=== PATIENT | female | born 2000 | race Caucasian/White ===

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

== ENCOUNTER 2022-02-10 23:09 | Emergency (ER) | payer OTHER ==
[~2022-02-10] VITALS: Ht 167.6 cm; Wt 61.0 kg
[~2022-02-10 23:09] MED LIST: AMOXICILLIN500 MG PO
[2022-02-11 00:21] VITALS: BP 112/74
[2022-02-11 00:30] VITALS: BP 112/67
[2022-02-11 00:51] LABS: URINE BILIRUBIN - DIPSTICK NEGATIVE (NEGATIVE); URINE BLOOD DIPSTICK NEGATIVE (NEGATIVE); URINE COLOR YELLOW; URINE GLUCOSE - DIPSTICK NEGATIVE (NEGATIVE); URINE KETONE NEGATIVE (NEGATIVE); URINE LEUK ESTERASE NEGATIVE (NEGATIVE); URINE PROTEIN - DIPSTICK NEGATIVE (NEG-TRACE); URINE UROBILINOGEN - DIPSTICK 0.2 E.U./dL (0.2)
[2022-02-11 00:55] LABS: URINE NITRITE - DIPSTICK NEGATIVE (Negative)
[2022-02-11] MEDS ORDERED: AMOXICILLIN500 MG PO (01:23)
[2022-02-11] MEDS ORDERED: CLARITIN10 M1 PO (01:26)
[2022-02-11 01:53] VITALS: BP 112/67
== END 2022-02-11 02:00 | disposition home or self-care (01) ==
LOC: ED 23:09
PROVIDERS: Emergency Medicine
DX: J02.9 Acute pharyngitis, unspecified (principal); Z20.822 Contact with and (suspected) exposure to COVID-19

== ENCOUNTER 2022-06-04 20:21 | Emergency (ER) | payer OTHER ==
[~2022-06-04] VITALS: Ht 167.6 cm; Wt 57.0 kg
[~2022-06-04 20:21] MED LIST changes: +CLARITIN10 M1 PO
[2022-06-04] MEDS ORDERED: NAPROXEN500 MG PO (21:16)
[2022-06-04 22:12] VITALS: BP 112/71
== END 2022-06-04 22:12 | disposition home or self-care (01) ==
LOC: ED 20:21
DX: S93.402A Sprain of unspecified ligament of left ankle, initial encounter (principal); S93.602A Unspecified sprain of left foot, initial encounter; W17.89XA Other fall from one level to another, initial encounter

== ENCOUNTER 2024-06-07 00:26 | Emergency (ER) | payer SELFPAY ==
[~2024-06-07] VITALS: Ht 167.6 cm; Wt 58.0 kg
[~2024-06-07 00:26] MED LIST changes: +NAPROXEN500 MG PO
[2024-06-07 00:37] VITALS: BP 103/63
[2024-06-07 01:59] LABS: URINE BILIRUBIN - DIPSTICK Negative (NEGATIVE); URINE BLOOD DIPSTICK Moderate (NEGATIVE); URINE GLUCOSE - DIPSTICK Negative (NEGATIVE); URINE KETONE Trace mg/dL (NEGATIVE); URINE LEUK ESTERASE Negative (NEGATIVE); URINE NITRITE - DIPSTICK Negative (Negative); URINE PH 5.5 (4.5-8.0); URINE PROTEIN - DIPSTICK Trace mg/dL (NEG-TRACE); URINE SPECIFIC GRAVITY 1.025; URINE UROBILINOGEN - DIPSTICK 0.2 E.U./dL (0.2)
[2024-06-07 02:01] LABS: BASO% 0.2 % (0-3); HEMATOCRIT 38.7 % (37.0-47.0); HEMOGLOBIN 12.7 g/dl (12.0-16.0); LYMPH% 28.5 % (15-41); MEAN CELL VOLUME 90.2 fL CALC (80.0-100.0); MEAN CORPUSCULAR HGB 29.6 pG CALC (26.0-32.0); MEAN CORPUSCULAR HGB CONC 32.8 g/dL CAL (32.0-36.0); MONO% 8.1 % (2-13); NEUT# 3.76 thou/uL (2.00-7.15); NEUT% 62.2 % (42-76); RED BLOOD COUNT 4.29 mill/uL (4.20-5.60); RED CELL DISTRI WIDTH 11.6 % (11.5-15.5)
[2024-06-07 02:02] LABS: URINE COLOR Yellow
[2024-06-07 02:14] LABS: ALBUMIN 4.5 g/dL (3.2-5.0); ALKALINE PHOSPHATASE 50 u/l (38-126); ANION GAP 9 (6-22 (CALC)); BILIRUBIN, TOTAL 0.8 mg/dL (0.02-1.3); BUN 16 mg/dL (7-17); BUN/CREATININE RATIO 20 (12-20 (CALC)); CARBON DIOXIDE 26 mmol/l (22-30); CHLORIDE 110 mmol/l (95-108); CREATININE 0.8 mg/dL (0.5-1.0); ESTIMATED GFR 107 ML/MIN (>=90 (CALC)); POTASSIUM 3.5 mmol/l (3.5-5.1); SGOT/AST 26 u/l (14-36); SODIUM 142 mmol/l (137-146); TOTAL PROTEIN 7.4 g/dL (6.3-8.2)
[2024-06-07 02:18] LABS: URINE RBC 0-2 RBC/hpf (0-5); URINE SQUAMOUS EPITHELIAL CELL RARE EPI/hpf (0-FEW); URINE WBC 0-2 WBC/hpf (0-5)
[2024-06-07 02:26] LABS: ACT PARTIAL THROMBO TIME 31.3 SECONDS (20.0-32.5); INTERNATIONAL NORMALIZED RATIO 1.1 RATIO (0.7-1.3)
[2024-06-07 02:34] LABS: D-DIMER 0.17 mg/L (0.19-0.60); PROTHROMBIN TIME 10.4 SECONDS (9.0-12.5)
[2024-06-07 02:58] VITALS: BP 103/63
== END 2024-06-07 03:08 | disposition home or self-care (01) | DRG 204 ==
LOC: ED 00:26
PROVIDERS: Family Medicine
DX: R06.02 Shortness of breath (principal); F17.290 Nicotine dependence, other tobacco product, uncomplicated; Z20.822 Contact with and (suspected) exposure to COVID-19

== ENCOUNTER 2024-10-26 23:35 | Emergency (ER) | payer SELFPAY ==
[~2024-10-26] VITALS: Ht 165.1 cm; Wt 54.0 kg
[2024-10-27 00:24] VITALS: BP 114/79
[2024-10-27] MEDS ORDERED: DEXAMETHASONE 2 MG/TAB TAB PO ONE (00:40)
[2024-10-27] MEDS ORDERED: BENZONATATE 200 MG/CAP PO ONE (00:40)
[2024-10-27] MEDS ORDERED: LIDOCAINE21 MT (02:24)
[2024-10-27] MEDS ORDERED: LIDOCAINE VISCOUS 2% 15 ML UDC PO ONE (02:25)
== END 2024-10-27 03:30 | disposition home or self-care (01) | DRG 153 ==
LOC: ED 23:35
DX: J02.9 Acute pharyngitis, unspecified (principal)